=== PATIENT | male | born 1955 | race Caucasian/White ===

== ENCOUNTER 2017-02-24 00:38 | Emergency (ER) | payer OTHER ==
[~2017-02-24] VITALS: Ht 188 cm; Wt 90.9 kg
[2017-02-24 00:47] VITALS: BP 134/81; PULSE 79; RESP 16; O2SAT 98
--- NOTE | 2017-02-24 00:57 | ED.REPORT ---
HPI-Extremity Problem Upper Date of Service Feb 24, 2017 ED Provider: Nacho Bailey DO Pt is an otherwise healthy 62 year old male who presents to the ED after accidentally cutting his left hand today. He c/o associated left hand pain and mild lightheadedness. He denies any other symptoms. The pt reports that he was pulling PVC up from his well, and using a knife when it slipped and cut his left hand. His last tetanus shot was 2 years ago. He denies taking blood thinners. Nursing Notes Stated Complaint: L HAND LAC Chief Complaint: Laceration Nursing Notes Reviewed: Yes Allergies: Coded Allergies: oxycodone (Verified Allergy, Unknown, 02/24/17) General Time Seen by MD: 00:45 Chief Complaint Hand Injury left Hx Obtained From: Patient Arrived By: Walk-in Onset Occurred: Just prior to arrival Symptom Duration: Since onset Caused by: Accidental Location: : Hand left Quality: Painful Severity: Current: Moderate Severity: Maximum: Moderate Recent Healthcare: No recent doctor visit, No recent hospitalization Similar Sx Previous: No Past Medical History Past Medical History None reported - healthy Past Surgical History Denies Smoking History Current Every Day Smoker Social History Alcohol Use: "Social" Drug Use: Denies drug use Ambulatory Status Independent Review of Systems + Left hand laceration Constitutional: Denies: Fever Musculoskeletal: Reports: Extremity pain (left hand) Neurologic: Reports: Lightheaded Complete sys rev & neg: except as marked. Respiratory: Denies: Non-productive cough, Shortness of breath Physical Exam Initial Vital Signs Vital Signs (First) Date Time Temp Pulse Resp B/P Pulse Ox O2 Delivery O2 Flow Rate FiO2 02/24/17 00:47 79 16 134/81 98 Room Air Initial VS: Reviewed Head / Eyes: Atraumatic, Normocephalic Neck: Supple, Full range of motion Respiratory: Breath sounds normal, Clear to auscultation, No respiratory distress Cardiovascular: Regular rate & rhythm, Heart sounds normal, Intact distal pulses Abdomen / GI: Soft, Non-tender Lower Extremities: Vascular intact, Neuro intact Skin: Warm, Dry, No cyanosis Neurologic: Alert, Oriented, Nonfocal Psychiatric: Mood/affect normal, Behavior normal General/Constitutional: Awake, Alert, No acute distress, Well appearing, Well developed Wrist / Hand: Neurologic intact, Vascular intact 4.5cm laceration on dorsum of left hand over web space between 1st and 2nd digist. No evidence of muscle belly rupture. Bleeding controlled with pressure. Procedures Laceration Management Time: 01:05 Procedure Performed by: ED physician Consent / Setup / Site Prep: Consent from patient, Time-out performed, Hand hygiene observed, Stand sterile technique Wound Length: 4 cm (.5) Local Anesthesia: Lidocaine w epi 2% Wound Preparation: Betadine Debridement: None Irrigation: Copious Repair Skin: ___ O (4), Nylon # Sutures - Skin: 12 Closure Layers: 1 Suture Technique: Simple (interuppted) Post-Procedure / Complications: Antibiotic oint applied, Dressing applied, No complications, Condition improved, Tolerated procedure well, Patient stable Re-Eval/Medical Decision Med Decision/Clinical Course The wound was explored to its base in a bloodless field. No evidence of tendon or bony involvement. No foreign bodies were seen. No muscle belly trauma. Wound was copiously irrigated and prepped with iodine. Wound was closed under meticulous sterile technique. Excellent approximation and hemostasis. Plan for routine wound care and 48 hour wound check. Full range of motion of all digits to flexion and extension opposition abduction and adduction without any functional deficits whatsoever. Normal 2 point discrimination distal to the wound. Source of Hx: Old records Re-Evaluation/Progress #1: Time of Eval: 01:05 Re-Evaluation/Progress Note: Pt rechecked. Repaired pt's laceration with consent. All questions addressed. Re-Evaluation/Progress #2: Time of Eval: 01:20 Re-Evaluation/Progress Note: Pt rechecked. Informed pt of plan for discharge. Pt understands and agrees with plan for discharge. F/U instructions and RTER warnings given. All questions addressed. Counseled Regarding: Diagnosis, Need for follow-up, When/why to return to ED Discharge & Departure Impression: Primary Impression: Laceration of left hand Encounter type: initial encounter Foreign body presence: unspecified Qualified Code: S61.412A - Laceration without foreign body of left hand, initial encounter Disposition: Home Discharge Condition All VS Reviewed: Yes Condition: Stable Patient Instructions: Care For Your Stitches (ED), Laceration (ED) Additional Instructions: Keep the wound dry and clean. Apply antibacterial ointment. Have the stitches removed in 7-10 days. Have the wound rechecked in 3 days. Call your primary care provider on Friday for a follow up appointment next week. Return to the Emergency Department for any new or worrisome symptoms. Referrals: Mahnaz Horn MD (PCP) Scribe Attestation Portions of this note were transcribed by Elisa Alvarado. I, Dr. Bailey personally performed the history, physical exam and medical decision-making; I reviewed and confirmed the accuracy of the information in the transcribed note. Signed by : Lalo Victor, 02/23/17. copies to: Mahnaz Horn MD, Todd P DO Feb 24, 2017 00:57 Elisa Ayala Feb 24, 2017 01:02
== END 2017-02-24 01:39 | disposition home or self-care (01) ==
LOC: SED 00:38
DX: S61.412A Laceration without foreign body of left hand, initial encounter (principal); W26.0XXA Contact with knife, initial encounter; Y93.89 Activity, other specified; Y92.009 Unspecified place in unspecified non-institutional (private) residence as the place of occurrence of the external cause; Y99.8 Other external cause status; F17.200 Nicotine dependence, unspecified, uncomplicated; Z88.5 Allergy status to narcotic agent

== ENCOUNTER 2017-03-03 15:25 | Emergency (ER) | payer OTHER ==
[~2017-03-03] VITALS: Ht 188 cm; Wt 90.9 kg
[2017-03-03 16:31] VITALS: BP 124/89; PULSE 72; RESP 18; O2SAT 98
--- NOTE | 2017-03-03 17:03 | ED.REPORT ---
HPI-Extremity Problem Upper Date of Service Mar 03, 2017 ED Provider: Hal Hanna MD Patient is a 62 year old male who presents to the ED complaining of left hand redness onset this morning. Associated symptoms include chills and swelling. He reports he is still experiencing pain in his hand. The patient was trying to break a PVC pipe a week ago and it cut his hand. The patient had sutures put in his hand. [facility] for a possible [facility]. Nursing Notes Stated Complaint: HAND INFECTION, SENT BY PA Chief Complaint: Wound Recheck/Suture Removal Nursing Notes Reviewed: Yes Allergies: Coded Allergies: oxycodone (Verified Allergy, Unknown, 03/03/17) Scheduled Cephalexin (Keflex) 500 Mg Capsule 500 MG PO QID Sulfamethoxazole/Trimeth 800-160 mg (Bactrim DS) 1 Each Tablet 1 TABLET PO BID General Time Seen by MD: 17:03 Chief Complaint Hand Injury left Hx Obtained From: Patient Arrived By: Walk-in Onset Occurred: 1 - 4 hours ago Symptom Duration: Since onset Location: : Hand left Quality: Painful Severity: Current: Mild Exacerbated by: Range of motion Recent Healthcare: Recent doctor visit Past Medical History Past Medical History None reported - healthy Past Surgical History Denies Smoking History Current Every Day Smoker Social History Alcohol Use: "Social" Drug Use: Denies drug use Ambulatory Status Independent Review of Systems Constitutional: Reports: Chills Musculoskeletal: Reports: Extremity pain, Extremity swelling Skin: Denies Itching, Denies Rash Complete sys rev & neg: except as marked. Physical Exam Initial Vital Signs Vital Signs (First) Date Time Temp Pulse Resp B/P Pulse Ox O2 Delivery O2 Flow Rate FiO2 03/03/17 16:31 36.8 72 18 124/89 98 Room Air Initial VS: Reviewed General/Constitutional: Awake, Alert Respiratory / Chest: Atraumatic, No respiratory distress Upper Extremity / MS: Atraumatic, Full range of motion Wrist / Hand: Neurologic intact, Vascular intact HAND: erythema surrounding the sutures pain with range of motion of his fingers no streaking lymphangitis Skin: No rash, Warm, Dry Neurologic: Oriented X3, Speech NL Head / Eyes: Atraumatic, Normocephalic, PERRL, EOMI Lower Extremity / Pelvis / MS: Atraumatic, Full range of motion Procedures Laceration Management Laceration Management: removed 5 sutures neurovascularly intact Time: 17:40 Procedure Performed by: ED physician Consent / Setup / Site Prep: Consent from patient, Time-out performed, Hand hygiene observed Location of Wound: left hand Wound Length: 3 cm Post-Procedure / Complications: Dressing applied, No complications, Condition improved, Tolerated procedure well, Patient stable Re-Eval/Medical Decision Med Decision/Clinical Course 62-year-old male 1 week status post hand laceration presenting with surrounding erythema this morning. He has no increase in pain on movement of his right hand reportedly. He has minimal pain on machine edge bander movement of right hand. It does appear to be a cellulitis around the sutures. I discussed with orthopedics who thought okay to discharge home with oral antibiotics with follow-up tomorrow. He has no evidence of tenosynovitis at this time. Orthopedics recommended I take some of the sutures out. I took up approximately half of them. He will follow up tomorrow for a wound check. Started on oral antibiotics. Return precautions given immediately if he has any worsening pain with movement of the right hand, right fingers, worsening redness, swelling, fevers, nausea vomiting, any other new or worsening symptoms. Re-Evaluation/Progress : Time of Eval: 17:57 Re-Evaluation/Progress Note: Discussed plan for antibiotics and discharge. Patient understands and agrees to plan. All questions were addressed. Consultation : Consulted With: Orthopedic Call Returned at: 17:17 Note: Consult with Dr. Martinez, who recommends the patient have some sutures removed and be started on Bactrim and Keflex. Patient should return for a recheck in 1-2 days. Counseled Regarding: Diagnosis, Need for follow-up, When/why to return to ED Discharge & Departure Impression: Primary Impression: Cellulitis Site of cellulitis: extremity Site of cellulitis of extremity: upper extremity Laterality: left Qualified Code: L03.114 - Cellulitis of left upper limb Disposition: Home Discharge Condition All VS Reviewed: Yes Condition: Stable Patient Instructions: Acute Wound Care (GEN) Additional Instructions: You are likely developing an infection around your sutures. Take Bactrim and Keflex as prescribed. Return to the emergency department or follow up with your primary care physician tomorrow for a recheck of your wound. Return to the emergency department sooner if you develop any new or concerning symptoms including spreading redness, swelling, increasing pain, pain with movement of your fingers or pus drainage. Referrals: Mahnaz Horn MD (PCP) [employer] Attestation Portions of this note were transcribed by Lulu Freedman. I, Dr. Hanna personally performed the history, physical exam and medical decision-making; I reviewed and confirmed the accuracy of the information in the transcribed note. Signed by: Lalo Shi, 03/03/17. copies to: Mahnaz Horn MD, Ben M MD Mar 03, 2017 17:03 Shawanda Freedman Mar 03, 2017 17:38
[2017-03-03] MEDS ORDERED: SULF1TAB7 PO (17:20)
[2017-03-03] MEDS ORDERED: CEPH-512 PO (17:20)
[2017-03-03] MEDS ORDERED: Trimethoprim-Sulfa 160 mg-800 mg Tablet PO ONE (17:20)
[2017-03-03 18:20] VITALS: BP 121/89; PULSE 67; RESP 18; O2SAT 100
== END 2017-03-03 18:21 | disposition home or self-care (01) ==
LOC: SED 15:25
DX: L03.114 Cellulitis of left upper limb (principal); F17.200 Nicotine dependence, unspecified, uncomplicated; Z88.5 Allergy status to narcotic agent